=== PATIENT | male | born 1965 | race Caucasian/White ===

== ENCOUNTER 2022-10-14 09:42 | Emergency (ER) | payer SELFPAY ==
[~2022-10-14] VITALS: Ht 175.3 cm; Wt 90.7 kg
[2022-10-14 09:49] VITALS: BP 173/85
--- NOTE | 2022-10-14 09:56 | NUR ---
KATLIN NIEVES AT BEDSIDE.
[2022-10-14] MEDS ORDERED: KETOROLAC 30 MG/ML VIAL IM ONE (10:00)
--- NOTE | 2022-10-14 10:05 | NUR ---
57 Y/O M BIB SELF PT C/O BILATERAL KNEE PAIN 8/10 X3 YEARS AND HAND PAIN WITH NUMBNESS TO FIRST 3 DIGITS X3 MONTHS DENIES INJURY OR TRAUMA. PMH: DENIES
[2022-10-14 10:26] LABS: BASOPHILS # (AUTO) 0.1 K/uL (0.00-0.22); EOSINOPHILS # (AUTO) 0.2 K/uL (0-0.4); EOSINOPHILS % (AUTO) 2.4 % (0.0-4.0); HEMATOCRIT 42.6 % (36-52); HEMOGLOBIN 14.3 g/dL (12.0-18.0); LYMPHOCYTES # (AUTO) 3.3 K/uL (2.0-11.5); LYMPHOCYTES % (AUTO) 39.7 % (20.5-51.1); MEAN CORPUSCULAR HEMOGLOBIN 32 pg (27-31); MEAN CORPUSCULAR HGB CONC 34 g/dL (33-37); MEAN CORPUSCULAR VOLUME 96.6 fL (80-94); MONOCYTES % (AUTO) 12.5 % (1.7-9.3); NEUTROPHILS # (AUTO) 3.7 K/uL (1.8-7.7); NEUTROPHILS % (AUTO) 44.4 % (42.2-75.2); PLATELET COUNT (AUTO) 244 K/uL (140-450); RED BLOOD CELL COUNT(AUTO) 4.41 MIL/uL (4.20-6.10); RED CELL DISTRIBUTION WIDTH 13.1 % (11.6-13.7); WHITE BLOOD COUNT (AUTO) 8.4 K/uL (4.8-10.8)
--- NOTE | 2022-10-14 10:30 | NUR ---
X-RAY AT BEDSIDE.
[2022-10-14 10:55] LABS: ANION GAP 12.7 (8-16); ASPARTATE AMINOTRANSFERASE 32 U/L (15-37); CARBON DIOXIDE 28.6 mmol/L (21-32); CHLORIDE 105 mmol/L (98-107); CREATININE 0.9 mg/dL (0.6-1.3); GFR ARICAN-AMERICAN 111 mL/min (>90); GLUCOSE 108 mg/dL (74-106); POTASSIUM 4.3 mmol/L (3.5-5.1); SODIUM SERUM 142 mmol/L (136-145); TOTAL BILIRUBIN 0.7 mg/dL (0.0-1.0); UREA NITROGEN, BLOOD 13 mg/dL (7-18)
[2022-10-14 11:34] VITALS: BP 159/87
--- NOTE | 2022-10-14 11:38 | NUR ---
KATLIN NIEVES AT BEDSIDE.
[2022-10-14] MEDS ORDERED: ACET-10509 PO (11:45)
[2022-10-14] MEDS ORDERED: DICL20GE TP (11:45)
[2022-10-14] MEDS ORDERED: NAPR-54 PO (11:45)
--- NOTE | 2022-10-14 11:55 | NUR ---
VELCRO WRIST SPLINT APPLIED TO BILATERAL WRISTS. + CMS
--- NOTE | 2022-10-14 12:00 | NUR ---
Patient discharged with v/s stable. Written and verbal after care instructions given and explained. Patient alert, oriented and verbalized understanding of instructions. Ambulatory with steady gait. All questions addressed prior to discharge. ID band removed. Patient advised to follow up with PMD. Rx of TYLENOL, VOLTAREN, NAPROXEN given. Patient educated on indication of medication including possible reaction and side effects. Opportunity to ask questions provided and answered.
--- NOTE | 2022-10-14 12:02 | NUR ---
The patient's care was reviewed and supervised by Amber Peck, RN, RN.
== END 2022-10-14 12:00 | disposition home or self-care (01) ==
LOC: MED 09:42
DX: M25.531 Pain in right wrist (principal); M25.532 Pain in left wrist; M25.562 Pain in left knee; M25.561 Pain in right knee; R03.0 Elevated blood-pressure reading, without diagnosis of hypertension; Z79.899 Other long term (current) drug therapy
CPT/HCPCS: 29125; 36415; 73110; 73130; 73562; 80053; 84484; 85025; 93005; 96372; 99285; J1885; Q0092